=== PATIENT | male | born 1990 | race Caucasian/White ===

== ENCOUNTER → 2022-06-27 10:31 | Outpatient (CLI) | payer SELFPAY | PROVIDERS: PCP Physician Assistant; Visit Provider Physician Assistant | DX: J02.9 Acute pharyngitis, unspecified (principal) | CPT/HCPCS: 87070 ==

== ENCOUNTER → 2022-08-31 13:08 | Outpatient (CLI) | payer OTHER, MEDICAID, SELFPAY ==
[2022-08-31 19:59] LABS: Add Manual Diff / Slide Review NO; Basophils Absolute Auto 0 /uL (0-100); Basophils Percent Auto 0.5 % (0-2); Eosinophils Absolute Auto 0 /uL (0-450); Eosinophils Percent Auto 0.6 % (2-4); Hematocrit 43.2 % (41-53); Lymphocytes Absolute Auto 1100 /uL (1100-4500); Lymphocytes Percent Auto 19.6 % (25-40); Mean Corpuscular HGB Conc 34.7 % (30-36); Mean Corpuscular Hemoglobin 33.3 PG (26-34); Mean Corpuscular Volume 95.9 fL (80-100); Monocytes Absolute Auto 600 /uL (0-900); Monocytes Percent Auto 9.9 % (3-14); Neutrophils Absolute Auto 4100 /uL (1500-7000); Neutrophils Percent Auto 69.4 % (50-75); Platelet Count 298 X10^3/uL (150-400); Red Blood Cell Count 4.51 X10^6/uL (4.5-5.9); Red Cell Distribution Width 14.2 % (11.6-14.8); White Blood Cell Count 5.8 X10^3/uL (4.5-11.0)
[2022-08-31 20:02] LABS: Alanine Aminotransferase 27 IU/L (<50); Albumin 4.5 g/dL (3.5-5.0); Albumin Globulin Ratio 1.6 (1.0-2.8); Alkaline Phosphatase 63 U/L (38-126); Aspartate Aminotransferase 29 IU/L (17-59); BUN Creatinine Ratio 16.7 (6-22); Bilirubin Total 0.9 mg/dL (0.2-1.3); Blood Urea Nitrogen 12 mg/dL (9-20); Carbon Dioxide 30 mmol/L (22-32); Chloride 98 mmol/L (98-107); Estimated Glomerular Filt Rate > 60 mL/min (>60); Globulin 2.9 g/dL (1.7-4.1); Glucose 94 mg/dL (70-100); Sodium 137 mmol/L (137-145); Total Protein 7.4 g/dL (6.3-8.2)
[2022-08-31 20:05] LABS: Calcium 9.2 mg/dL (8.4-10.2); HEMOLYSIS 16 (0-50)
[2022-08-31 20:31] LABS: TSH w/ Reflex to FT4 0.63 uIU/mL (0.47-4.68)
[2022-09-01 23:19] LABS: x Labcorp Estim. Avg Glu (eAG) 94 mg/dL (.); x Labcorp Hemoglobin A1c 4.9 % (4.8-5.6)
== END ==
PROVIDERS: PCP Physician Assistant; Visit Provider Physician Assistant
DX: F41.1 Generalized anxiety disorder (principal); G89.29 Other chronic pain; H93.19 Tinnitus, unspecified ear; R42 Dizziness and giddiness; R51.9 Headache, unspecified; R55 Syncope and collapse; Z82.0 Family history of epilepsy and other diseases of the nervous system
CPT/HCPCS: 80053; 83036; 84443; 85025

== ENCOUNTER → 2022-09-01 13:32 | Outpatient (CLI) | payer OTHER, MEDICAID, SELFPAY | PROVIDERS: PCP Physician Assistant; Referring Provider Physician Assistant; Visit Provider Physician Assistant | DX: R55 Syncope and collapse (principal) | CPT/HCPCS: 93246 ==

== ENCOUNTER → 2022-12-07 13:41 | Outpatient (CLI) | payer OTHER, MEDICAID, SELFPAY ==
--- NOTE | 2022-12-07 13:43 | DI.ECHO.S_ITS ---
[facility] +---------+ : : [address] : [place] [place] : : : : [id number] : : : : Phone: [phone]+ Echocardiogram Report + + :Name: VASQUEZ HANKINS Study Date: 12/07/2022 Height: 69.5 in: :[facility] ReadingLocation: Weight: 149 lb : : Gender: Male BSA: 1.8 m2 : :: 1990 Age: 31 yrs BP: 117/82 mmHg: :Reason For Study: CHEST PAIN : :Ordering Physician: PEDRO, : :LIANET Performed By: Ayse Dejesus : :Referring: LIANET DOMINGUEZ : + + Interpretation Summary 1) Normal left ventricular thickness, size, wall motion, and systolic function (EF 55-60%). 2) Normal right ventricular size and function. 3) No significant valvular abnormalities. 4) No prior Echo available for comparison. Procedure: A two-dimensional transthoracic echocardiogram with color flow and Doppler was performed. The study quality was technically adequate. There is no prior echocardiogram noted for this patient. The patient was in sinus rhythm with heart rates between 68-82 bpm during the exam. Left Ventricle: The left ventricle is normal in size and wall thickness. The ejection fraction is estimated to be 55-60%. Left ventricular systolic function appears normal without focal wall motion abnormalities. Diastolic parameters suggest probable normal left ventricular diastolic function and normal filling pressures. Right Ventricle: The right ventricle is normal in size and function. Atria: The left atrial size is normal. Right atrial size is normal. There is no Doppler evidence for an interatrial shunt. Mitral Valve: The mitral valve is normal in structure and function. There is trace mitral regurgitation. Aortic Valve: The aortic valve opens well. The aortic valve is trileaflet. There is no aortic valve stenosis. No aortic regurgitation is present. Tricuspid Valve: The tricuspid valve is normal in structure and function. There is trace tricuspid regurgitation. Pulmonary artery pressures cannot be estimated because of the lack of a measurable TR jet velocity. Pulmonic Valve: The pulmonic valve leaflets are thin and pliable; valve motion is normal. There is no pulmonic valvular regurgitation. Great Vessels: The aortic root is normal size. The dimensions of the ascending aorta are normal. The IVC is of normal diameter and collapses greater than 50% with a sniff. This suggests a low right atrial pressure of 3 mm Hg. Pericardium/ Pleura There is no pericardial effusion. There is no pleural effusion. MMode/2D Measurements & Calculations LVIDd: 4.9 cm LVOT diam: 2.0 cm LVIDs: 3.1 cm Ao root diam: 3.3 cm FS: 35.5 % asc Aorta Diam: 2.8 cm IVSd: 0.49 cm Ao Arch Diam (Prox Trans): 2.5 cm LVPWd: 0.60 cm LV perry. diameter/BSA (cm/m^2): 2.6 LV sys. diameter/BSA (cm/m^2): 1.7 LA A2 area: 12.8 cm2 RA long axis: 3.7 cm LA A4 area: 11.5 cm2 RA area: 10.9 cm2 LA length (vol): 4.2 cm RA vol: 27.6 ml LA vol: 29.5 ml RA : 15.1 ml/m2 LA vol index: 16.1 ml/m2 IVC diam: 1.1 cm RVD1 (basal): 3.2 cm RVD2 (mid): 2.8 cm TAPSE: 2.4 cm Doppler Measurements & Calculations Ao V2 max: 102.9 cm/sec LVOT Max Heriberto: 97.5 cm/sec Ao V2 mean: 69.1 cm/sec LV V1 max P.8 mmHg Ao max P.2 mmHg LV V1 VTI: 19.4 cm Ao mean P.2 mmHg ODIN(I,D): 3.1 cm2 Ao V2 VTI: 20.5 cm ODIN(V,D): 3.1 cm2 sev ratio: 0.95 ODIN indexed to BSA (cm^2/m^2): 1.7 MV E max heriberto: 81.9 cm/sec PA V2 max: 75.4 cm/sec MV A max heriberto: 64.7 cm/sec PA V2 mean: 54.8 cm/sec MV E/A: 1.3 PA mean P.3 mmHg Med Peak E' Heriberto: 10.9 cm/sec PA pr(Accel): 13.9 mmHg E/E' med: 7.5 Lat Peak E' Heriberto: 19.9 cm/sec E/E' lat: 4.1 E/e' average: 5.8 MV dec time: 0.19 sec SV(LVOT): 62.8 ml Reading Physician:03:42 PM
--- NOTE | 2022-12-08 23:03 | DI.NM.S_ITS ---
DATE OF SERVICE: 12/07/2022 PROCEDURE: Exercise stress test. INDICATIONS: Chest pain. CARDIAC STRESS: Patient underwent exercise stress test under the supervision of an attending staff. Patient walked on Bharat protocol for 9 minutes and 28 seconds, achieved maximum heart rate of 184, which was 97% of target heart rate. Resting blood pressure 108/70 and peak blood pressure 152/84. Achieved 10.1 METs of workload. PAT +31%. Patient felt fatigue. No anginal symptoms. Baseline rhythm was sinus. During exercise, no convincing ischemic changes seen. No significant arrhythmias. There was accelerated heart rate response. During first stage of exercise, heart rate went up to 130 beats per minute. At 5 minutes into the recovery, heart rate returned to 100 beats per minute. CONCLUSION: Exercise stress test is negative for inducible ischemia. Diminished exercise capacity. PAT +31%. Normal blood pressure response. Accelerated heart rate response. No significant arrhythmias. Overall, low-risk exercise stress test. 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
== END ==
PROVIDERS: PCP Family Medicine; Referring Provider Internal Medicine Cardiovascular Disease; Visit Provider Internal Medicine Cardiovascular Disease
DX: R07.9 Chest pain, unspecified (principal); R42 Dizziness and giddiness; R55 Syncope and collapse
CPT/HCPCS: 93017; 93306